=== PATIENT | female | born 1940 | race Caucasian/White ===

== ENCOUNTER → 2018-03-09 13:34 | Outpatient (CLI) | payer MEDICARE, BC, SELFPAY ==
--- NOTE | 2018-03-09 | DI.US.S_ITS ---
PROCEDURE: US ABDOMEN COMPLETE INDICATIONS: UPPER RIGHT QUADRANT PAIN TECHNIQUE: Real-time scanning was performed of the abdominal and retroperitoneal organs, with image documentation. COMPARISON: None. FINDINGS: Liver: Liver is normal in size and homogeneous in echotexture. Gallbladder: The gallbladder is normal in size without gallbladder wall thickening, pericholecystic fluid, or cholelithiasis. There is a 3 mm polyp identified on the antidepressant aspect of the gallbladder wall which does not demonstrate obvious increased vascularity. Biliary ducts: Intrahepatic bile ducts are non-dilated. Extrahepatic bile duct caliber measures 3 mm. Normal is 6-7 mm or less in diameter, or 10 mm or less post-cholecystectomy. Pancreas: Visualized portions of the pancreas are sonographically normal. Spleen: Spleen is normal in size and homogeneous in echotexture. Kidneys: Kidneys are normal in size and echotexture. Right kidney measures 9.6 cm long; left kidney measures 9.6 cm long. No hydronephrosis or shadowing nephrolithiasis. No solid masses. Simple cyst is evident involving the upper aspect of the right kidney measuring 1.5 cm. Aorta: Visualized aorta is normal in caliber at less than 3 cm. Iliacs: Obscured by bowel gas. IVC: Intrahepatic inferior vena cava is patent. Miscellaneous: No free abdominal fluid. IMPRESSION: 1. No cholelithiasis or evidence of acute cholecystitis. 2. Small gallbladder wall polyp is of doubtful significance. However, followup imaging in 18-24 months would be of value. 2. No hydronephrosis of the kidneys. Dictated by: Atul Pandey M.D. on 03/09/2018 at 15:30 Approved by: Atul Pandey M.D. on 03/09/2018 at 15:31
== END ==
PROVIDERS: Family Provider Physician Assistant; Visit Provider Physician Assistant
DX: R10.11 Right upper quadrant pain (principal)
CPT/HCPCS: 76700

== ENCOUNTER → 2019-09-27 13:34 | Outpatient (CLI) | payer MEDICARE, BC, SELFPAY ==
--- NOTE | 2019-09-27 | DI.US.S_ITS ---
PROCEDURE: US ABDOMEN LIMITED INDICATIONS: CHOLESTEROLSIS OF GALL BLADDER TECHNIQUE: Real-time focused scanning was performed of the abdomen, with image documentation. COMPARISON: [facility], US, US ABDOMEN COMPLETE, 03/09/2018, 14:12. FINDINGS: Normal appearance of liver. 5 mm gallbladder polyp, otherwise normal appearance of the gallbladder. IMPRESSION: No change to slight increase in size of 5 mm gallbladder polyp. Dictated by: Serjio CANO Interpreted: Gertrudis Del Rio MD on 09/27/2019 at 16:54 Approved by: Gertrudis Del Rio M.D. on 09/27/2019 at 17:30
== END ==
PROVIDERS: PCP Internal Medicine; Visit Provider Internal Medicine
DX: K82.4 Cholesterolosis of gallbladder (principal)
CPT/HCPCS: 76705